=== PATIENT | male | born 2000 ===

== ENCOUNTER → 2023-10-28 | Outpatient (CLI) | payer BC ==
[2023-10-28 08:48] LABS: Chloride 106 mmol/L (98-107); Potassium 3.5 mmol/L (3.5-5.1); Sodium 140 mmol/L (136-145)
[2023-10-28 08:49] LABS: Anion Gap 6 (5-15); Calcium 9.3 mg/dL (8.5-10.1); Carbon Dioxide 28 mmol/L (20-30)
[2023-10-28 08:54] LABS: Blood Urea Nitrogen 9 mg/dL (9-23); Glucose 87 mg/dL (74-106); Triglycerides 76 mg/dL (< 150)
[2023-10-28 08:55] LABS: LDL Cholesterol 91 mg/dL (< 100)
[2023-10-28 08:56] LABS: Cholesterol 150 mg/dL (< 200); HDL Cholesterol 54 mg/dL (40-59)
== END | disposition home or self-care (01) ==
LOC: LAB 08:26
PROVIDERS: ATTEND Internal Medicine
DX: E78.5 Hyperlipidemia, unspecified (principal); R07.9 Chest pain, unspecified
CPT/HCPCS: 36415; 80048; 80061